=== PATIENT | male | born 1980 | race Caucasian/White ===

== ENCOUNTER → 2017-12-04 13:21 | Outpatient (CLI) | payer SELFPAY ==
[2017-12-04 15:44] LABS: Hepatitis B Surface Antigen NEGATIVE s/c (NEGATIVE)
[2017-12-04 15:58] LABS: HIV 1 and 2 Antibody NEGATIVE (NEGATIVE); Hep C Virus Ab w/Reflex Quant NEGATIVE s/c (NEGATIVE)
[2017-12-04 16:06] LABS: Urine N gonorrhoeae NOT DETECTED
[2017-12-04 16:18] LABS: Urine Chlamydia NOT DETECTED
[2017-12-11 12:49] LABS: Rapid Plasma Reagin NON-RECTIVE
== END ==
DX: Z11.3 Encounter for screening for infections with a predominantly sexual mode of transmission (principal)
CPT/HCPCS: 36415; 86592; 86703; 86803; 87340; 87491; 87591

== ENCOUNTER 2024-05-05 11:07 | Emergency (ER) | payer SELFPAY ==
[2024-05-05] VITALS (8 sets, daily range): BP systolic 192–219; BP diastolic 92–131; PULSE 59–76; RESP 14; TEMP 37; O2SAT 96–98; BMI 34.9
--- NOTE | 2024-05-05 11:29 | ED_ITS ---
HPI - Abdominal Pain General Chief Complaint: Abdominal Pain Stated Complaint: per pt has hernia/ abd pain, sent by [facility] Time Seen by Provider: 05/05/24 11:27 Source: patient Mode of arrival: Ambulatory History of Present Illness HPI narrative: Patient with past medical history no significance presents to the emergency department from walk-in clinic for evaluation of abdominal pain and possible hernia. He states that he has been noticing a possible hernia to his right inguinal region denies any testicular pain denies any penile discharge. He also states he has been feeling some diffuse abdominal pain and is unsure if this is related. Denies any recent travel no known sick contacts denies any other symptoms at this time. Does endorse some nausea but no vomiting Related Data Previous Rx's Medication Instructions Recorded sildenafil 100 mg tablet (Viagra) 50 - 100 mg (0.5 - 1 x 100 mg) PO 05/22/22 DAILY PRN sexual activity #30 tabs Allergies Allergy/AdvReac Type Severity Reaction Status Date / Time No Known Drug Allergies Allergy Verified 05/05/24 11:13 Review of Systems Review of Systems Narrative: General: Denies fever, chills, weight loss HEENT: Denies headache, eye drainage, eye irritation, head trauma, sore throat, voice change Cardiovascular: Denies any chest pain, palpitations, shortness of breath, tachycardia Respiratory: Denies any shortness of breath, cough, wheeze, stridor GI/: D positive abdominal pain, nausea, denies vomiting, diarrhea, bright red blood per rectum, melanotic stools, urinary frequency, urinary retention, dysuria, hematuria MSK: Denies any joint pain, muscle pains, swelling Skin: Denies any rashes, lesions, discoloration Neuro: Denies any headache, lightheadedness, dizziness, fainting, weakness Psych: Denies SI/HI Patient History Medical History (Updated 05/05/24 @ 13:41 by Howie Montana DO) Tobacco dependence PE (physical exam), annual Erectile dysfunction Social History Smoking Status: Current every day smoker Smoking Status: Current every day smoker alcohol intake frequency: 3 or more drinks per day Substance Use Type: does not use Exam Narrative Exam Narrative: General: Cooperative, comfortable, well-developed, not in acute distress HEENT: Normocephalic, atraumatic, PERRLA, normal sclera, eyelids normal, Neck: Active full range of motion, atraumatic Chest: Normal to inspection, negative crepitus, no overlying erythema ecchymosis Respiratory: Normal respiratory effort, not in acute respiratory distress, clear to auscultation bilaterally negative cough, wheeze, tachypnea, rhonchi, rales Cardiology: Regular rate rhythm negative gallop, murmur, rubs GI/: Normal to inspection, soft, nonrigid, no tenderness to palpation, exam without any palpable inguinal hernias, no other lesions MSK: Full range of active range of motion of all 4 extremities, atraumatic Skin: No rashes lesions noted Neuro: Alert awake oriented x3, moves all 4 extremities spontaneously, cranial nerves intact, able to answer all questions appropriately follows commands appropriately Psych: Cooperative, negative suicidal or homicidal ideations Initial Vital Signs Initial Vital Signs: Vital Signs Temperature 98.6 F 05/05/24 11:13 Pulse Rate 67 05/05/24 11:13 Respiratory Rate 14 05/05/24 11:13 Blood Pressure 213/131 H 05/05/24 11:13 Pulse Oximetry 98 05/05/24 11:13 Oxygen Delivery Method Room Air 05/05/24 11:13 Course Orders Ordered: ED Orders 05/05/24 11:25 Complete Blood Count AUTO DIFF Stat Comprehensive Metabolic Panel Stat Lipase Stat 05/05/24 11:29 CT abdomen pelvis w con Stat Ondansetron HCl (Ondansetron 4 Mg/2 Ml Inj) 4 mg IV NOW PRN PRN Reason: Nausea And Vomiting Ondansetron HCl (Ondansetron 4 Mg Odt) 4 mg PO NOW PRN PRN Reason: Nausea And Vomiting Vital Signs Vital signs: Vital Signs - 8 hr 05/05/24 11:13 05/05/24 11:18 05/05/24 11:19 Temperature 98.6 F Pulse Rate 67 70 Respiratory Rate 14 Blood Pressure 213/131 H Pulse Oximetry 98 98 97 Oxygen Delivery Method Room Air 05/05/24 11:19 05/05/24 12:24 05/05/24 12:24 Temperature Pulse Rate 65 Respiratory Rate Blood Pressure 195/130 H 202/93 H Pulse Oximetry 97 Oxygen Delivery Method MDM - Abdominal Pain Differential Diagnosis Differential diagnosis: Likely abdominal pain, constipation, diverticulitis and other (Urinary tract infection) Lab Data 05/05/24 11:25 05/05/24 11:25 Labs: Lab Results 05/05/24 Range/Units 11:25 WBC 8.2 (4.5-11.0) X10^3/uL RBC 5.56 (4.5-5.9) X10^6/uL Hgb 17.5 (13.5-17.5) g/dL Hct 49.2 (41-53) % MCV 88.4 (80-100) fL MCH 31.4 (26-34) PG MCHC 35.5 (30-36) % RDW 12.8 (11.6-14.8) % Plt Count 241 (150-400) X10^3/uL Neut % (Auto) 65.3 (50-75) % Lymph % (Auto) 23.6 L (25-40) % [place] % (Auto) 8.7 (3-14) % Eos % (Auto) 1.5 L (2-4) % Baso % (Auto) 0.9 (0-2) % Neut # (Auto) 5300 (0483-4656) /uL Lymph # (Auto) 1900 (9467-6795) /uL [place] # (Auto) 700 (0-900) /uL Eos # (Auto) 100 (0-450) /uL Baso # (Auto) 100 (0-100) /uL Sodium 137 (137-145) mmol/L Potassium 4.0 (3.4-5.1) mmol/L Chloride 102 (98-107) mmol/L Carbon Dioxide 27 (22-32) mmol/L BUN 13 (9-20) mg/dL Creatinine 1.13 (0.66-1.25) mg/dL Estimated GFR > 60 (>60) mL/min BUN/Creatinine Ratio 11.5 (6-22) Glucose 110 H (70-100) mg/dL Calcium 9.2 (8.4-10.2) mg/dL Total Bilirubin 1.0 (0.2-1.3) mg/dL AST 42 (17-59) IU/L ALT 52 H (<50) IU/L Alkaline Phosphatase 74 (38-126) U/L Total Protein 8.1 (6.3-8.2) g/dL Albumin 4.7 (3.5-5.0) g/dL Globulin 3.4 (1.7-4.1) g/dL Albumin/Globulin Ratio 1.4 (1.0-2.8) Lipase 52 (23-300) U/L Imaging Data CT scan - abdomen/pelvis: Radiologist's Impression: [address] [address] [address] Scan Report Signed Patient: Chadd Stoll MR#: [id number] : 1980 Acct:[id number] Age/Sex: 43 / M Date of Service: 05/05/24 Loc: ED Accession Number: [id number] Procedure: CT abdomen pelvis w con Ordering Provider: Howie Montana D.O. PROCEDURE: CT ABDOMEN PELVIS W CON INDICATIONS: diffuse abd pain, pain to the right inguinal region TECHNIQUE: After the administration of intravenous contrast, axial sections acquired from the lung bases to the pubic symphysis. Coronal and sagittal reformats were performed. For radiation dose reduction, the following was used: automated exposure control, adjustment of mA and/or kV according to patient size. COMPARISON: None. FINDINGS: Image quality: Diagnostic. Lower Chest: No significant findings. ABDOMEN: Liver: No solid mass. Hepatic steatosis is seen, no discrete hepatic lesion. Gallbladder: No radiopaque gallstones or wall thickening. Biliary ducts: No biliary dilation. Pancreas: No ductal dilation. Spleen: Size is within normal limits. Adrenal Glands: No adrenal nodules. Kidneys and Ureters: No hydronephrosis. No solid mass. No complex renal cystic lesion which requires follow up. Stomach and Bowel: There is no bowel obstruction. No gastric or small bowel wall thickening. Appendix is visualized and is within normal limits. Mild diffuse colonic wall thickening with mild pericolonic fat stranding is noted. Mild narrowing of the colonic lumen is also noted particularly involving ascending colon. Sigmoid diverticulosis is seen without focal acute diverticulitis. Peritoneum: No abnormal intraperitoneal fluid. No free air. Ventral Wall: No significant ventral hernia. Abdominal Nodes: No retroperitoneal or mesenteric adenopathy by size criteria. Vessels: Aorta and inferior vena cava are normal in size. PELVIS: Pelvic Organs: Unremarkable. Bladder: No bladder wall thickening, accounting for underdistention. Pelvic Nodes: No enlarged lymph nodes. Miscellaneous: Moderate size right inguinal hernia is seen containing fat only. Bones: No aggressive osseous abnormality. IMPRESSION: 1. Finding is suggestive of low-grade infectious inflammatory colitis. No bowel obstruction. Normal appendix. Sigmoid diverticulosis without CT evidence of acute diverticulitis. No abscess collection. No free fluid or free air. 2. Moderate right inguinal hernia containing fat only. MDM Narrative Medical decision making narrative: Patient is a 41-year-old male with no past medical history of significance presents to the emergency department for diffuse abdominal pain and swelling/possible hernia to his right inguinal region. Denies any actual testicular pain. States it has been ongoing for the past few days, went to the walk-in clinic, sent here. Lab work unremarkable no leukocytosis, CT scan showing mild colitis, patient is afebrile, not meeting any sepsis or sirs criteria. CT also did show moderate right inguinal hernia containing fat only no signs of incarceration. Patient instructed to follow up with outpatient primary care and surgery, he verbalized understanding of this and agrees to being discharged home with outpatient follow up Discharge Plan Departure Patient Disposition: Home Clinical Impression: Abdominal pain Activity Restrictions/Additional Instructions: Please follow-up with your primary care doctor Prescriptions: No Action sildenafil [Viagra] 100 mg tablet 50 - 100 mg PO DAILY PRN (Reason: sexual activity) Qty: 30 11RF Rx Instructions: take 30 minutes to 4 hours before activity Referrals: Osvaldo Santiago DO [Primary Care Provider] - Stand Alone Forms: Patient Portal/API
--- NOTE | 2024-05-05 11:31 | PC.NURSE ---
When this RN was placing IV line patient blood pressure reappeared and was elevated. I asked patient if he took anything for it. Patient responded I should've told her but she was so pretty and nice I couldn't tell her but I use cocaine. I asked patient how much and how often. Patient responded 2-3 times a week and I just took 3-4 little tiny spoons last night. I asked patient if he does any other drugs patient responded no This RN asked patient if he has ever had an overdose. Patient responded no. This RN informed provider. No new orders given.
[2024-05-05 11:33] LABS: Add Manual Diff / Slide Review NO; Basophils Absolute Auto 100 /uL (0-100); Basophils Percent Auto 0.9 % (0-2); Eosinophils Absolute Auto 100 /uL (0-450); Eosinophils Percent Auto 1.5 % (2-4); Hematocrit 49.2 % (41-53); Hemoglobin 17.5 g/dL (13.5-17.5); Lymphocytes Absolute Auto 1900 /uL (1100-4500); Lymphocytes Percent Auto 23.6 % (25-40); Mean Corpuscular HGB Conc 35.5 % (30-36); Mean Corpuscular Hemoglobin 31.4 PG (26-34); Mean Corpuscular Volume 88.4 fL (80-100); Monocytes Absolute Auto 700 /uL (0-900); Monocytes Percent Auto 8.7 % (3-14); Neutrophils Absolute Auto 5300 /uL (1500-7000); Neutrophils Percent Auto 65.3 % (50-75); Platelet Count 241 X10^3/uL (150-400); Red Blood Cell Count 5.56 X10^6/uL (4.5-5.9); Red Cell Distribution Width 12.8 % (11.6-14.8); White Blood Cell Count 8.2 X10^3/uL (4.5-11.0)
[2024-05-05 11:45] LABS: Alanine Aminotransferase 52 IU/L (<50); Albumin 4.7 g/dL (3.5-5.0); Albumin Globulin Ratio 1.4 (1.0-2.8); Alkaline Phosphatase 74 U/L (38-126); Aspartate Aminotransferase 42 IU/L (17-59); BUN Creatinine Ratio 11.5 (6-22); Blood Urea Nitrogen 13 mg/dL (9-20); Calcium 9.2 mg/dL (8.4-10.2); Carbon Dioxide 27 mmol/L (22-32); Chloride 102 mmol/L (98-107); Estimated Glomerular Filt Rate > 60 mL/min (>60); Globulin 3.4 g/dL (1.7-4.1); Glucose 110 mg/dL (70-100); HEMOLYSIS < 15 (0-50); Lipase 52 U/L (23-300); Sodium 137 mmol/L (137-145); Total Protein 8.1 g/dL (6.3-8.2)
--- NOTE | 2024-05-05 12:26 | PC.NURSE ---
This RN informed provider of patient elevated blood pressure and no new orders were issued.
== END 2024-05-05 13:49 | disposition home or self-care (01) ==
PROVIDERS: Emergency Provider Student in an Organized Health Care Education/Training Program; PCP Family Medicine
DX: R10.9 Unspecified abdominal pain (principal)
CPT/HCPCS: 36415; 74177; 80053; 83690; 85025; 99283; 99284; Q9967